=== PATIENT | male | born 1985 | race African-American/Black ===

== ENCOUNTER 2020-12-05 16:16 | Emergency (ER) | payer SELFPAY ==
[2020-12-05] MEDS ORDERED: Ibuprofen 200 MG TAB ONE (17:33)
== END 2020-12-05 17:45 | disposition home or self-care (01) ==
LOC: ERS 16:16
DX: G56.01 Carpal tunnel syndrome, right upper limb (principal); J45.909 Unspecified asthma, uncomplicated; F17.210 Nicotine dependence, cigarettes, uncomplicated
CPT/HCPCS: 99284